=== PATIENT | male | born 1975 | race Caucasian/White ===

== ENCOUNTER 2017-04-29 05:16 | Inpatient (IN) | payer OTHER ==
--- NOTE | 2017-04-23 08:38 | PREOPHP ---
DATE OF ADMISSION: 04/29/2017 The patient to have surgery with Dr. Myron Armstrong on 04/29/2017. REQUESTING PHYSICIAN: Dr. Myron Armstrong. REASON FOR CONSULTATION: Medical evaluation and clearance of a 41-year-old gentleman about to under go surgery. Thank you, Dr. Armstrong, for allowing us to participate in the care of this patient. HISTORY OF PRESENT ILLNESS: Francisco Faith, a 41-year-old gentleman with problems and issues with hi s back is currently being admitted for a lumbar spine disk surgery L5-S1 for relief of back symptoms . PAST MEDICAL HISTORY: The patient has had no medical hospitalizations, no other surgical procedures . Has not broken any bones. MEDICATIONS: Currently takin. [place] as needed. 2. Omeprazole 20 mg a day. No other chronic ongoing medications. ALLERGIES: HE IS NOT ALLERGIC TO ANY MEDICATIONS. He describes his general health as being good. SOCIAL HISTORY: The patient is , has 2 children, no grandchildren. He does not smoke. [place] socially. Does drink coffee, is employed. Usually has no difficulty sleeping at night. FAMILY HISTORY: Father at age 55 of lung cancer. The patient's father was a smoker. Mother i s 79, has heart issues and hypertension, and 1 sister is alive and well. There is family history of heart, cancer, hypertension, no diabetes or strokes. REVIEW OF SYSTEMS HEENT: Asymptomatic, no headaches, diplopia or dizziness. CARDIORESPIRATORY: Denies any chest pain or shortness of breath. GASTROINTESTINAL: No melena or hematemesis; however, does have signs and symptoms of hyperacidity. GENITOURINARY: Has occasional urgency and frequency. MUSCULOSKELETAL: Positive for back pain. NEUROPSYCHIATRIC: Unremarkable. GENERAL HEALTH: As above. PHYSICAL EXAMINATION: VITAL SIGNS: The patient's blood pressure was 136/94, pulse was 76 and regular, respirations were 1 8, temperature 98.8, height 5 feet 7 inches, weight 205 pounds. GENERAL: The patient was noted to be a well-developed, well-nourished male, alert and cooperative, in no apparent acute distress, oriented to time, place, and person. HEAD, EARS, EYES, NOSE AND THROAT: Head was atraumatic. Eyes: Pupils were equal, reactive to ligh t and accommodation. Fundi were benign. Tympanic membranes were unremarkable. Nose was negative. Mouth was unremarkable. Fair oral hygiene was present. NECK: Supple without any rigidity. Trachea was midline. Thyroid was unremarkable. Neck veins wer e flat. Carotid pulses were equal. No bruits were heard. BACK: Unremarkable. CHEST: Symmetrical. BREASTS AND AXILLARY: Did not reveal any masses. LUNGS: Clear to percussion and auscultation. HEART: PMI was at 5th intercostal space at the midclavicular line. A regular sinus rhythm was note d. No significant murmurs, rubs, or gallops being elicited. ABDOMEN: Soft, good bowel sounds were noted. No significant organomegaly, masses, or tenderness. GENITALIA: Normal male external genitalia. RECTAL AND PROSTATIC: Per PCP. EXTREMITIES: Did not reveal any clubbing, edema or cyanosis. Peripheral pulses were physiologic. SKIN: Moist and warm without any eruptions. No gross lymphadenopathy was noted. NEUROLOGIC: Grossly intact. IMPRESSION 1. Lumbar disk disease and left paracentral disk extrusion at L5-S1. 2. Gastroesophageal reflux disease by history. 3. Stable health. LABORATORY DATA: Review of laboratory and other data revealed the following: The patient's associate chemist ry panel including electrolytes, BUN and creatinine and liver function tests were normal. Random gl ucose was 110. CBC, sed rate, UA, PT and PTT were basically within normal limits. EKG was normal a s was the patient's chest x-ray. His bladder scan revealed a residual of 30 mL. DISCUSSION: Dr. Armstrong, I see no contraindication in this patient undergoing current proposed bueno rgery under desired form of anesthesia and will be more than happy to follow him along with you nicole art his stay at [facility]. Thank you again, Dr. Armstrong, for allowing us to participate in the care of this patient. Dictated By: FADY FISHER/ABDIRAHMAN Conf#: [id number] DID#: [id number]
[2017-04-29] VITALS (24 sets, daily range): BP systolic 120–148; BP diastolic 64–85; PULSE 1–108; RESP 13–21; Ht 170.2 cm; Wt 92.3 kg
[~2017-04-29] VITALS: Ht 170.2 cm; Wt 92.3 kg
[2017-04-29] MEDS ORDERED: POLYMYXIN/BACITRACIN 1L IRRIG ONE (06:26)
[2017-04-29] MEDS ORDERED: OMEP20CA16 PO (06:26)
[2017-04-29] MEDS ORDERED: BUPIVACAINE 0.25%/EPI (SDV) 30 ML INJ ONE (06:42)
[2017-04-29] MEDS ORDERED: THROMBIN 5000 UNIT VIAL ONE (06:42)
[2017-04-29] MEDS ORDERED: SURGIFOAM POWDER 1 GM KIT ONE (06:42)
[2017-04-29] MEDS ORDERED: BUPIVACAINE 0.25% (MPF) 30 ML INJ ONE (06:42)
[2017-04-29] MEDS ORDERED: CEFAZOLIN 1 GM INJ ONE (07:00)
[2017-04-29] MEDS: D5W-0.45 NACL + KCL 20 MEQ 1,000 ML IV SCH ×4 (07:01→22:26)
--- NOTE | 2017-04-29 07:01 | HPN ---
Date/Time of Note Date/Time of Note DATE: 04/29/17 TIME: 07:01 Interval H&P Admission Note Pt. seen H&P reviewed: No system changes LEV JUDD MD Apr 29, 2017 07:01
[2017-04-29] MEDS ORDERED: CA CHLORIDE 10% 10 ML SYRINGE ONE (07:03)
[2017-04-29] MEDS ORDERED: MIDAZOLAM 1 MG/ML 2 ML INJ ONE (07:20)
[2017-04-29] MEDS ORDERED: NALOXONE (0.4 MG/ML) INJ IV PRN (07:30)
[2017-04-29] MEDS ORDERED: HYDROmorphONE 0.2 MG/ML PCA IV SCH (07:30)
[2017-04-29] MEDS ORDERED: ACETAMINOPHEN 325 MG TAB PO PRN (07:30)
[2017-04-29] MEDS ORDERED: AL HYDROX/MG HYDROX/SIMETH 30 ML CUP PO PRN (07:30)
[2017-04-29] MEDS ORDERED: DIPHENHYDRAMINE 25 MG CAP PO PRN (07:30)
[2017-04-29] MEDS ORDERED: OXYCODONE/ACETAMINOPHEN (10/325) TAB PO PRN (07:30)
[2017-04-29] MEDS ORDERED: BISACODYL 10 MG SUPP PR PRN (07:30)
[2017-04-29] MEDS ORDERED: CEPASTAT LOZENGE MT PRN (07:30)
[2017-04-29] MEDS ORDERED: ONDANSETRON 4 MG INJ IV PRN ×2 (07:30→08:30)
[2017-04-29] MEDS ORDERED: DIPHENHYDRAMINE 50 MG INJ IV PRN ×2 (07:30→08:30)
[2017-04-29] MEDS ORDERED: HYDROmorphONE 1 MG/ML SYG IV PRN (07:30)
[2017-04-29] MEDS ORDERED: POLYMYXIN/BACITRACIN 1L IRRIG IRR ONE (07:43)
[2017-04-29] MEDS ORDERED: BUPIVACAINE 0.25%/EPI (SDV) 30 ML INJ INJ ONE (07:43)
[2017-04-29] MEDS ORDERED: THROMBIN 5000 UNIT VIAL TOP ONE (07:43)
[2017-04-29] MEDS ORDERED: FENTAnyl 50 MCG/ML VIAL ONE (08:18)
[2017-04-29] MEDS ORDERED: FENTAnyl 50 MCG/ML VIAL IV PRN (08:30)
[2017-04-29] MEDS ORDERED: ONDANSETRON 4 MG INJ ONE (08:30)
[2017-04-29] MEDS ORDERED: morphine (1 MG/ML) 10ML SYRINGE IV PRN ×2 (08:30)
[2017-04-29] MEDS ORDERED: MEPERIDINE 25 MG INJ IV PRN (08:30)
[2017-04-29] MEDS ORDERED: MEPERIDINE 100 MG INJ ONE (09:07)
[2017-04-29] MEDS ORDERED: LIDOCAINE 2% (SDV) 5 ML INJ ONE (09:08)
[2017-04-29] MEDS ORDERED: ROCURONIUM 50 MG INJ ONE (09:08)
[2017-04-29] MEDS ORDERED: PROPOFOL 20 ML ONE (09:09)
--- NOTE | 2017-04-29 09:16 | OPPN ---
Date/Time of Note Date/Time of Note DATE: 04/29/17 TIME: 09:14 Operative Report Preoperative Diagnosis left L5-S1 HNP Postoperative Diagnosis left L5-S1 HNP Operation/Procedure Performed left L5-S1 microdiscectomy Provider: LEV JUDD MD assistant family teacher: JANNA SOTELO PA-C Anesthesia: general Estimated blood loss: 10 - 50 ml's Specimens L5-S1 disc Grafts/Implants none Complications: None JANNA SOTELO PA-C Apr 29, 2017 09:15
--- NOTE | 2017-04-29 09:28 | OPR ---
Date/Time of Note Date/Time of Note DATE: 04/29/17 TIME: 09:19 Operative Report Procedure Date: Apr 29, 2017 Preoperative Diagnosis Left L5-S1 disc herniation with radiculopathy Postoperative Diagnosis Left L5-S1 disc herniation with radiculopathy Operation Performed Left L5-S1 hemilaminotomy, partial medial facetectomy, foraminotomy. Left L5- S1 lumbar microdiscectomy. Lateral localizing film 2. Epidural injection via catheter. Intraoperative neuro monitoring and (1.5 hours) Surgeon: LEV JUDD MD physical therapy assistant instructor: JANNA SOTELO PA-C Anesthesia: general Anesthesiologist: JAYLENE WHITTEN MD Estimated Blood Loss: 10 - 50 ml's Specimens L5-S1 disc Grafts/Implants none Complications: None Pt Condition Post Procedure: stable Disposition: PACU Indications This is a 41-year-old gentleman with left leg pain in the setting of a left- sided disc herniation at L5-S1. He failed nonoperative measures therefore recommended that he undergo the above procedure. Operative\Procedure Findings Neuro monitoring at the start of the case revealed left L4 amplitude on 20%, left L5 amplitude on 40%, left S1 amplitude on 30%. End of the case all nerve signals returned to normal. There is a left-sided disc herniation at L5-S1 Procedure Description The patient was identified in the preoperative holding area. He was given Ancef antibiotics. He was taken to the operating room and placed under general anesthesia. Neuro monitoring leads were placed sequential compressive devices were applied. Neuro monitoring was utilized in the procedure for 1.5 hours to include SSEP, MEP, and EMG. This was performed by [employer]. Start time was 7:45 AM closure time was 9:15 AM The patient was placed in the operating room table in prone position over a [place] frame. All bony prominences well-padded. The back was then prepped and draped in the usual sterile fashion. Spinal needles were placed in a lateral localizing films obtained to confirm the correct levels. I next injected Marcaine and epinephrine. Incision was then made over the L5-S1 level. Incision was taken down to the dorsal fascia which was incised with Bovie cautery. I then subperiosteally dissected left L5 lamina. Fely retractor was placed. A Kerrison was placed under was felt to be the left L5 lamina and a repeat lateral film was obtained to confirm the correct levels. Next microscope was brought in and a left-sided hemilaminotomy was performed at the L5-S1 level. Ligamentum flavum was then dissected. My public health training assistant then retracted the neural elements medially. I then made an annulotomy followed by limited microdiscectomy. Once this was done all nerve signal return to normal. The disc space and wound were then irrigated. Valsalva was performed and there is no leak of CSF. hemostasis was achieved with bipolar cautery and Surgifoam. Epidural catheter was passed through which I injected 100 mcg of fentanyl and the catheter was removed. The anesthesiologist anna peripheral blood which is spun down using the Kartela device. The PPP was mixed with thrombin and then injected over the dura for hemostatic purposes. Retractors were removed and a closed the deep fascia with a #1 Vicryl stitch. I closed subcu tissue with a 2-0 Vicryl stitch. 4-0 Monocryl closure was then performed. Dermabond was then applied. Patient was then awakened from anesthesia and taken to the recovery room in stable condition. Lap sponge and spent counts correct 2. There are no apparent complications during the procedure. Patient will be admitted to the [facility] for routine postoperative care to include pain control neurovascular checks and physical therapy Copies To: CC: LEV JUDD MD, BABAK MD Apr 29, 2017 09:28
--- NOTE | 2017-04-29 09:37 | RADRPT ---
PROCEDURE: XR Lumbar Spine one view. CLINICAL INDICATION: Low back pain. Intraoperative. TECHNIQUE: Prone portable cross-table lateral. COMPARISON: No prior studies are available for comparison. FINDINGS: For the purposes of this report, the last apparent true disc level is considered to be L5-S1. Based on this, the posterior needle markers are present at the L4 spinous process level and L5-S1 spinous process level. IMPRESSION: 1. Intraoperative imaging as described above. RPTAT: QQ .Stefan Gomez MD, Date Time Electronically viewed and signed by .Stefan Gomez MD, on 04/29/2017 09:36 .R/
[2017-04-29] MEDS: CYCLOBENZAPRINE 10 MG TAB PO PRN ×2 (11:05→19:17)
[2017-04-29] MEDS: DOCUSATE SODIUM 100 MG CAP PO SCH ×2 (11:06→20:42)
--- NOTE | 2017-04-29 13:58 | RADRPT ---
PROCEDURE: Lumbar spine x-ray CLINICAL INDICATION: Lumbar spine surgery TECHNIQUE: Single intraoperative lateral view of the lumbar spine is available for review COMPARISON: None available FINDINGS: A surgical probe is identified at the L5-S1 disk space. Single lateral x-ray of the lumbar spine wa s performed intraoperatively for localization during the procedure in progress. IMPRESSION: 1. Intraoperative x-ray for localization during lumbar spinal surgical procedure. RPTAT: KK .Damine Blackburn MD, Date Time Electronically viewed and signed by .Damien Blackburn MD, on 04/29/2017 13:57 .B/
--- NOTE | 2017-04-29 15:28 | CONS ---
Date/Time of Note Date/Time of Note DATE: 04/29/17 TIME: 15:23 Assessment/Plan Assessment/Plan Problems: (1) Surgery follow-up examination Status: Acute Comment: post op stable Consultation Date/Type/Reason Admit Date/Time Apr 29, 2017 at 05:16 Initial Consult Date 24 HR Interval Summary Free Text/Dictation patient seen in recovery room post op day0 Exam/Review of Systems Vital Signs Vitals Vital Signs Date Time Temp Pulse Resp B/P Pulse Ox O2 Delivery O2 Flow Rate FiO2 04/29/17 10:17 96 17 123/72 99 Nasal Cannula 3.0 04/29/17 09:28 98.0 Exam Constitutional: alert Respiratory: normal air movement Cardiovascular: regular rate and rhythm Extremities: normal pulses Medications Medications Current Medications Potassium Chloride/Dextrose/ Sod Cl (D5-1/2ns + KCl 20 Meq) 1,000 ml @ 100 mls/ hr Q10H IV Last administered on 04/29/17 11:06; Admin Dose 100 MLS/HR; Start 04/29/17 at 07:01 Oxycodone/ Acetaminophen (Endocet (10/ 325)) 1 tab Q4H PRN PO PAIN LEVEL 1-5; Start 04/29/17 at 07:30 Oxycodone/ Acetaminophen (Endocet (10/ 325)) 2 tab Q4H PRN PO PAIN LEVEL 6-10; Start 04/29/17 at 07:30 Hydromorphone HCl 0.2 mg 0.2 mg Q1H PRN IV BREAKTHROUGH PAIN; Start 04/29/17 at 07:30 Cefazolin Sodium (Ancef 1 Gm/50 ml (Pmx)) 50 ml @ 100 mls/hr Q8H IVPB ; Start 04/29/17 at 07:30; Stop 04/29/17 at 23:59 Ondansetron HCl (Zofran Inj) 4 mg Q6H PRN IV NAUSEA AND/OR VOMITING Last administered on 04/29/17 12:07; Admin Dose 4 MG; Start 04/29/17 at 07:30 Bisacodyl (Dulcolax Supp) 10 mg DAILY PRN [place] CONSTIPATION; Start 04/29/17 at 07 :30 Docusate Sodium (Colace) 100 mg BID PO Last administered on 04/29/17 11:06; Admin Dose 100 MG; Start 04/29/17 at 09:00 Pantoprazole (Protonix Iv) 40 mg DAILY@06 IV ; Start 04/30/17 at 06:00 Al Hydrox/Mg Hydrox/Simethicone (Mag-Al Plus) 15 ml Q6H PRN PO CONSTIPATION/ DYSPEPSIA; Start 04/29/17 at 07:30 Acetaminophen (Tylenol Tab) 650 mg Q4H PRN PO ESCALONA OR TEMP GREATER THAN 101.3F; Start 04/29/17 at 07:30 Cyclobenzaprine HCl (Flexeril) 10 mg TID PRN PO MUSCLE SPASMS Last administered on 04/29/17 11:05; Admin Dose 10 MG; Start 04/29/17 at 07:30 Phenol (Cepastat Lozenge) 1 lozenge PRN PRN [place] SORE THROAT Last administered on 04/29/17 11:05; Admin Dose 1 LOZENGE; Start 04/29/17 at 07:30 Diphenhydramine HCl (Benadryl) 25 mg Q6H PRN PO ITCHING; Start 04/29/17 at 07: 30 Diphenhydramine HCl (Benadryl) 25 mg Q6H PRN IV ITCHING; Start 04/29/17 at 07: 30 Naloxone HCl (Narcan) 0.2 mg Q2M PRN IV RR 8 BREATHS/MIN OR LESS; Start at 07:30 Hydromorphone HCl (Dilaudid SECURITIES BROKER) SECURITIES BROKER to be started in PACU Q4PCA IV Last administered on 04/29/17 09:53; Admin Dose 6 MG; Start 04/29/17 at 07:30; Stop 04/30/17 at 10:00 Miscellaneous Information 1. Hold SECURITIES BROKER at 1,000... SECURITIES BROKER IV ; Start 04/29/17 at 07: 30 FADY MYLES MD Apr 29, 2017 15:28
[2017-04-29] MEDS: CEFAZOLIN 1 GM/50 ML (PMX) 50 ML IVPB SCH (17:30)
[2017-04-29] MEDS: OXYCODONE/ACETAMINOPHEN (10/325) TAB PO PRN (19:17)
[2017-04-30] MEDS: CEFAZOLIN 1 GM/50 ML (PMX) 50 ML IVPB SCH (00:05)
[2017-04-30] MEDS: OXYCODONE/ACETAMINOPHEN (10/325) TAB PO PRN (00:05)
[2017-04-30 00:20] VITALS: BP 113/66; PULSE 79; RESP 17
[2017-04-30] MEDS: CYCLOBENZAPRINE 10 MG TAB PO PRN (02:45)
[2017-04-30] MEDS ORDERED: PANTOPRAZOLE 40 MG INJ IV SCH (06:00)
[2017-04-30 07:55] VITALS: BP 83/46; RESP 19
--- NOTE | 2017-04-30 09:11 | CONS ---
Date/Time of Note Date/Time of Note DATE: 04/30/17 TIME: 09:04 Consult Date/Type/Reason Admit Date/Time Apr 29, 2017 at 05:16 Reason for Consultation post op consult followup Subjective complaining of back pain and had to discontinue narcotic secondary to nausea Objective Vital Signs Date Time Temp Pulse Resp B/P Pulse Ox O2 Delivery O2 Flow Rate FiO2 04/30/17 07:55 98.0 74 19 83/46 97 04/30/17 00:20 Room Air 04/29/17 15:30 3.0 Intake and Output 04/29/17 04/29/17 04/30/17 15:00 23:00 07:00 Intake Total 1000 ml 1420 ml 1150 ml Output Total 10 ml Balance 990 ml 1420 ml 1150 ml Exam heent unremarkable lungs clear heart regular rhyth abdomen soft bs present Results/Medications Results 24 hrs Laboratory Tests Test 04/30/17 08:34 Bedside Glucose 118 Medications Current Medications Potassium Chloride/Dextrose/ Sod Cl (D5-1/2ns + KCl 20 Meq) 1,000 ml @ 100 mls/ hr Q10H IV Last administered on 04/29/17 22:26; Admin Dose 100 MLS/HR; Start 04/29/17 at 07:01 Oxycodone/ Acetaminophen (Endocet (10/ 325)) 1 tab Q4H PRN PO PAIN LEVEL 1-5 Last administered on 04/30/17 00:05; Admin Dose 1 TAB; Start 04/29/17 at 07:30 Oxycodone/ Acetaminophen (Endocet (10/ 325)) 2 tab Q4H PRN PO PAIN LEVEL 6-10; Start 04/29/17 at 07:30 Hydromorphone HCl (Dilaudid) 0.2 mg Q1H PRN IV BREAKTHROUGH PAIN; Start at 07:30 Ondansetron HCl (Zofran Inj) 4 mg Q6H PRN IV NAUSEA AND/OR VOMITING Last administered on 04/29/17 12:07; Admin Dose 4 MG; Start 04/29/17 at 07:30 Bisacodyl (Dulcolax Supp) 10 mg DAILY PRN [place] CONSTIPATION; Start 04/29/17 at 07 :30 Docusate Sodium (Colace) 100 mg BID PO Last administered on 04/29/17 20:42; Admin Dose 100 MG; Start 04/29/17 at 09:00 Pantoprazole (Protonix Iv) 40 mg DAILY@06 IV Last administered on 04/30/17 05: 46; Admin Dose 40 MG; Start 04/30/17 at 06:00 Al Hydrox/Mg Hydrox/Simethicone (Mag-Al Plus) 15 ml Q6H PRN PO CONSTIPATION/ DYSPEPSIA; Start 04/29/17 at 07:30 Acetaminophen (Tylenol Tab) 650 mg Q4H PRN PO ESCALONA OR TEMP GREATER THAN 101.3F; Start 04/29/17 at 07:30 Cyclobenzaprine HCl (Flexeril) 10 mg TID PRN PO MUSCLE SPASMS Last administered on 04/30/17 02:45; Admin Dose 10 MG; Start 04/29/17 at 07:30 Phenol (Cepastat Lozenge) 1 lozenge PRN PRN [place] SORE THROAT Last administered on 04/29/17 11:05; Admin Dose 1 LOZENGE; Start 04/29/17 at 07:30 Diphenhydramine HCl (Benadryl) 25 mg Q6H PRN PO ITCHING; Start 04/29/17 at 07: 30 Diphenhydramine HCl (Benadryl) 25 mg Q6H PRN IV ITCHING; Start 04/29/17 at 07: 30 Naloxone HCl (Narcan) 0.2 mg Q2M PRN IV RR 8 BREATHS/MIN OR LESS; Start at 07:30 Miscellaneous Information 1. Hold TELECOMMUNICATIONS ENGINEER at 1,000... TELECOMMUNICATIONS ENGINEER IV ; Start 04/29/17 at 07: 30 Assessment/Plan Additional Assessment/Plan impression stable post op FADY MYLES MD Apr 30, 2017 09:11
[2017-04-30] MEDS: DOCUSATE SODIUM 100 MG CAP PO SCH (09:40)
[2017-04-30] MEDS ORDERED: HYDROCODONE/APAP (5/325) TAB PO PRN (10:30)
[2017-04-30] MEDS: HYDROCODONE/APAP (5/325) TAB PO PRN ×2 (10:52→15:46)
--- NOTE | 2017-04-30 12:44 | DS ---
Date/Time of Note Date/Time of Note DATE: 04/30/17 TIME: 12:40 Discharge Summary Admission/Discharge Info Admit Date/Time Apr 29, 2017 at 05:16 Discharge Date/Time April 30, 2017 Discharge Diagnosis s/p discectomy Patient Condition: Good Procedures lumbar discectomy Hospital Course The patient underwent a lumbar discectomy on April 29 after which he was admitted to [facility] for routine op care. His post-op course was uncomplicated. by post op day 1 he was deemed stable for d/c with follow-up arranged with the undersigned. rx for norco 5 was given Home Meds Reported Medications Omeprazole* (Omeprazole*) 20 Mg Capsule., 20 MG PO DAILY, #30 CAP 04/29/17 Primary Care Provider Not On Staff Doctor Time spent on discharge: < 30 minutes Pending Labs Laboratory Tests Test 04/30/17 08:34 Bedside Glucose 118mg/dL (70-220) LEV JUDD MD Apr 30, 2017 12:44
[2017-04-30] MEDS: D5W-0.45 NACL + KCL 20 MEQ 1,000 ML IV SCH (13:01)
== END 2017-04-30 16:20 | disposition home or self-care (01) | DRG 520 ==
LOC: REC 05:16 → MS1 10:15
PROVIDERS: ADMIT Specialist; ATTEND Specialist
PROC: 0SB40ZZ Excision of Lumbosacral Disc, Open Approach (ICD-10-PCS; principal; 2017-04-29 07:00)
DX: M51.17 Intervertebral disc disorders with radiculopathy, lumbosacral region (principal); K21.9 Gastro-esophageal reflux disease without esophagitis
CPT/HCPCS: 72020; 82962; 86999; 97116; 97162; 97530; C9113; J0690; J1170; J2175; J2250; J2405; J3010; J3480